=== PATIENT | female | born 1995 | race Caucasian/White ===

== ENCOUNTER 2020-01-21 18:04 | Emergency (ER) | payer OTHER ==
[~2020-01-21] VITALS: Ht 154.9 cm; Wt 45.4 kg
[2020-01-21 18:06] VITALS: Ht 154.9 cm; Wt 45.4 kg
[2020-01-21 20:51] VITALS: BP 123/72
== END 2020-01-21 20:51 | disposition home or self-care (01) ==
LOC: ED 18:04
DX: S93.401A Sprain of unspecified ligament of right ankle, initial encounter (principal); Q78.0 Osteogenesis imperfecta; W18.30XA Fall on same level, unspecified, initial encounter; Y93.89 Activity, other specified; Y92.89 Other specified places as the place of occurrence of the external cause; Y99.8 Other external cause status
CPT/HCPCS: J1885; J3010